=== PATIENT | male | born 2000 | race African-American/Black ===

== ENCOUNTER 2019-03-20 13:46 | Emergency (ER) | payer OTHER ==
[2019-03-20 14:14] VITALS: BP 116/65
--- NOTE | 2019-03-20 14:48 | ED Physician Documentation ---
PD HPI UPPER EXT INJURY - Stated complaint Stated Complaint: RT HAND PX - Chief complaint Chief Complaint: Ext Problem - History obtained from History obtained from: Patient - History of Present Illness Location: Right, Hand Type of injury: Blunt / blow Where injury occurred: Other (gym) Timing - onset: Today Timing - duration: Minutes Timing - details: Abrupt onset, Still present Improved by: Rest, Ice, Immobilization Worsened by: Moving, Palpating Associated symptoms: Swelling, Discolored. No: Weakness Similar symptoms before: Has not had sx before Recently seen: Not recently seen - Additonal information Additional information: 18-year-old male was playing a basketball game of the game was tight and the patient went up to dunk the ball and slammed his hand onto the rim. He has a lot of swelling over the thenar eminence. He is able to flex and extend the fingers he is not able to oppose the thumb. He has no crepitance and distal neurovascular components are intact. Review of Systems Constitutional: denies: Fever Eyes: denies: Decreased vision Ears: denies: Ear pain Nose: denies: Congestion Throat: denies: Sore throat Respiratory: denies: Cough GI: denies: Vomiting PD PAST MEDICAL HISTORY - Allergies Allergies/Adverse Reactions: Allergies Allergy/AdvReac Type Severity Reaction Status Date / Time No Known Drug Allergies Allergy Verified 03/20/19 14:56 PD ED PE NORMAL - Vitals Vital signs reviewed: Yes (normal ) - General General: Alert and oriented X 3, Well developed/nourished - HEENT HEENT: Atraumatic, PERRL, EOMI - Neck Neck: Supple, no meningeal sign - Respiratory Respiratory: No respiratory distress - Derm Derm: Normal color, Warm and dry, No rash - Extremities Extremities: No deformity, No edema, Other (There is swelling ecchymosis and tenderness to the thenar emminance on the right hand. The distal n/v is intact and the patient is able to flex/ext all fingers. He does have some problem with opposition of the thumb secondary to pain. ) - Neuro Neuro: Alert and oriented X 3, store standards associate 2-12 intact, No motor deficit, No sensory deficit, Normal speech Eye Opening: Spontaneous Motor: Obeys Commands Verbal: Oriented GCS Score: 15 - Psych Psych: Normal mood, Normal affect Results - Vitals Vitals: Vital Signs - 24 hr 03/20/19 14:01 Temperature 36.3 C L Heart Rate 58 L Respiratory 16 Rate Blood Pressure 116/65 O2 Saturation 100 Oxygen O2 Source Room air - Rads (name of study) hand R Radiology: Prelim report reviewed (Impression: Normal hand radiography.), EMP read indepedently, See rad report PD MEDICAL DECISION MAKING - ED course Complexity details: reviewed results, re-evaluated patient, considered differential, d/w patient ED course: 18 y/o male with a contusion to the right hand has bruising over the thenar eminence and no evidence of fracture. He is placed into a thumb spica and he will follow-up with Ortho as needed. Departure - Departure Disposition: 01 Home, Self Care Clinical Impression: Contusion of right hand Qualifiers: Encounter type: initial encounter Qualified Code(s): S60.221A - Contusion of right hand, initial encounter Condition: Stable Instructions: ED Sprain Hand Follow-Up: OLEGARIO Fernandez [Provider Group]
[2019-03-20] MEDS ORDERED: IBUPROFEN 800 MG TABLET PO STA (14:49)
--- NOTE | 2019-03-20 14:57 | XRAY Report ---
Reason: swelling pain basketball injury Procedure Date: 03/20/2019 Accession Number: [id number] / [id number] Procedure: XR - Hand 3 View RT CPT Code: FULL RESULT: EXAM: RIGHT HAND RADIOGRAPHY EXAM DATE: 03/20/2019 02:45 PM. CLINICAL HISTORY: Swelling, pain basketball injury. COMPARISON: None. TECHNIQUE: 3 views. FINDINGS: Bones: Normal. No fractures or bone lesions. Joints: Normal. No subluxations. Soft Tissues: Normal. No soft tissue swelling. IMPRESSION: Normal hand radiography. [facility]
== END 2019-03-20 15:17 | disposition home or self-care (01) ==
LOC: ED 13:46
DX: S60.221A Contusion of right hand, initial encounter (principal); W21.89XA Striking against or struck by other sports equipment, initial encounter; Y93.67 Activity, basketball; Y92.39 Other specified sports and athletic area as the place of occurrence of the external cause
CPT/HCPCS: 73130; 99283; 99284; A9270

== ENCOUNTER 2020-01-16 15:24 | Emergency (ER) | payer SELFPAY ==
[2020-01-16 15:59] LABS: BILIRUBIN,URINE NEGATIVE (NEGATIVE); GLUCOSE, URINE (UA) NEGATIVE (NEGATIVE); KETONES,URINE (UA) TRACE mg/dL (NEGATIVE); LEUKOCYTE ESTERASE, URINE TRACE (NEGATIVE); NITRITE,URINE NEGATIVE (NEGATIVE); OCCULT BLOOD,URINE NEGATIVE (NEGATIVE); PROTEIN,URINE 100 mg/dL (NEGATIVE); UROBILINOGEN,URINE 1 (NORMAL) E.U./dL (NORMAL)
[2020-01-16 16:00] LABS: CLARITY,URINE HAZY (CLEAR)
[2020-01-16 16:22] LABS: BACTERIA,URINE None Seen /HPF (None Seen); MUCUS,URINE Few Strands; RBC,URINE 0-5 /HPF (0-5); SQUAMOUS EPITHELIAL CELL,UR NONE SEEN (<= Few)
[2020-01-16] MEDS ORDERED: LIDOCAINE 1% 2 ML VIAL MC ONE (17:42)
[2020-01-16] MEDS ORDERED: AZITHROMYCIN 250 MG TABLET PO STA (17:42)
[2020-01-16] MEDS ORDERED: cefTRIAXone 1 GM VIAL IM STA (17:42)
--- NOTE | 2020-01-16 17:44 | ED Physician Documentation ---
History of Present Illness - Stated complaint Stated Complaint: MALE - Chief complaint Chief Complaint: General - History obtained from History obtained from: Patient - History of Present Illness Timing: Today Pain level max: 0 Pain level now: 0 - Additonal information Additional information: 19-year-old male presents the emergency department stating that he has green discharge from his penis. States he had unprotected intercourse recently. Nothing makes it better or worse. No fevers. Review of Systems Constitutional: denies: Fever, Chills Respiratory: denies: Cough GI: denies: Abdominal Pain, Vomiting, Diarrhea : reports: Dysuria Skin: denies: Rash Musculoskeletal: denies: Neck pain, Back pain Neurologic: denies: Headache PD PAST MEDICAL HISTORY - Past Medical History Cardiovascular: None Respiratory: None Neuro: None Endocrine/Autoimmune: None GI: None : None HEENT: None Psych: None Musculoskeletal: None Derm: None - Past Surgical History Past Surgical History: No - Allergies Allergies/Adverse Reactions: Allergies Allergy/AdvReac Type Severity Reaction Status Date / Time No Known Drug Allergies Allergy Verified 01/16/20 15:39 - Social History Does the pt smoke?: No Smoking Status: Never smoker Does the pt drink ETOH?: No Does the pt have substance abuse?: No - Immunizations Immunizations are current?: Yes PD ED PE NORMAL - Vitals Vital signs reviewed: Yes - General General: Alert and oriented X 3, No acute distress - Cardiac Cardiac: Strong equal pulses - Respiratory Respiratory: No respiratory distress - Abdomen Abdomen: Soft, Non tender - Male Male : Other (Normal testicular exam. Green discharge from the urethral meatus. Otherwise normal exam) - Derm Derm: Warm and dry - Neuro Neuro: Alert and oriented X 3 Results - Vitals Vitals: Vital Signs - 24 hr 01/16/20 01/16/20 15:37 17:12 Temperature 37.3 C 36.9 C Heart Rate 66 65 Respiratory 16 16 Rate Blood Pressure 107/62 123/70 O2 Saturation 98 100 Oxygen O2 Source Room air - Labs Labs: Laboratory Tests 01/16/20 15:48 Urine Color YELLOW Urine Clarity HAZY Urine pH 7.0 Ur Specific [place] 1.020 Urine Protein 100 H Urine Glucose (UA) NEGATIVE Urine Ketones TRACE Urine Occult Blood NEGATIVE Urine Nitrite NEGATIVE Urine Bilirubin NEGATIVE Urine Urobilinogen 1 (NORMAL) Ur Leukocyte Esterase TRACE H Urine RBC 0-5 Urine WBC 6-10 H Ur Squamous Epith Cells NONE SEEN Urine Bacteria None Seen Urine Mucus Few Strands Ur Microscopic Review INDICATED Urine Culture Comments INDICATED PD MEDICAL DECISION MAKING - ED course Complexity details: considered differential, d/w patient ED course: Patient with what appears to be gonorrhea. Given Rocephin and azithromycin. We will have him follow-up with his doctor for further care. Counseled to have his partner tested and treated as well. Patient will also be retested to ensure clearance. Patient counseled regarding signs and symptoms for which I believe and urgent re-evaluation would be necessary. Patient with good understanding of and agreement to plan and is comfortable going home at this time This document was made in part using voice recognition software. While efforts are made to proofread this document, sound alike and grammatical errors may occur. Departure - Departure Disposition: 01 Home, Self Care Clinical Impression: Gonorrhea Condition: Good Instructions: ED STD Male Treated Follow-Up: your,doctor in 1 week for repeat testing [Other] Comments: You were given Rocephin and azithromycin tonight. Your partner should be tested and treated as well. You should be retested in 1-2 weeks to ensure clearance.
[2020-01-16 18:06] VITALS: BP 121/60
== END 2020-01-16 18:16 | disposition home or self-care (01) ==
LOC: ED 15:24
DX: A54.09 Other gonococcal infection of lower genitourinary tract (principal)
CPT/HCPCS: 81001; 87086; 87491; 87591; 96372; 99283; 99284; A9270; 81003; 87661